=== PATIENT | female | born 1980 | race Two or more races ===

== ENCOUNTER 2023-03-22 09:20 | Emergency (ER) | payer OTHER ==
[~2023-03-22] VITALS: Ht 154.9 cm; Wt 53.5 kg
[2023-03-22 10:27] LABS: HEMOGLOBIN 13.3 g/dL (12.0-15.00); MEAN CELL VOLUME 88.2 fL (80.00-100.00); PLATELET COUNT 217 K/uL (150-450); RED BLOOD COUNT 4.43 M/uL (4.00-6.00); RED CELL DISTRIBUTION WIDTH 13.8 % (11.5-14.5)
[2023-03-22 10:42] LABS: CALCIUM 9.4 mg/dL (8.5-10.1); CREATININE SERUM 0.59 mg/dL (0.55-1.02); GFR 111.24; POTASSIUM 3.64 mEq/L (3.5-5.1)
[2023-03-22 13:37] LABS: URINE APPEARANCE Cloudy; URINE BILIRRUBIN Negative (NEGATIVE); URINE COLOR Yellow; URINE GLUCOSE Negative (NEGATIVE); URINE LEUKOCYTE Trace; URINE NITRATE Negative; URINE PROTEIN Negative (NEGATIVE); URINE UROBILINOGEN 0.2 E.U./dl
[2023-03-22 13:40] LABS: URINE EPITHELIAL CELLS 4.6 uL (0.0-38.8); URINE RBC 16.2 uL (0.0-20.8); URINE WBC 115.9 uL (0.0-23.2)
[2023-03-22 14:03] LABS: URINE BACTERIA > 9821.2 uL (0.0-1933); URINE BLOOD TRACE
[2023-03-22] MEDS ORDERED: PEPCID AC20 MG PO (14:16)
[2023-03-22] MEDS ORDERED: ZOFRAN8 MG PO (14:16)
== END 2023-03-22 14:30 | disposition home or self-care (01) ==
LOC: ER 09:21
PROVIDERS: General Practice
DX: K29.00 Acute gastritis without bleeding (principal); R10.9 Unspecified abdominal pain; R19.7 Diarrhea, unspecified

== ENCOUNTER 2023-10-10 10:07 | Emergency (ER) | payer OTHER ==
[~2023-10-10] VITALS: Ht 154.9 cm; Wt 54.4 kg
[~2023-10-10 10:07] MED LIST: PEPCID AC20 MG PO; ZOFRAN8 MG PO
[2023-10-10] MEDS ORDERED: KETOROLAC TROMETHAMINE 60 MG VIAL IM STA (10:22)
[2023-10-10] MEDS ORDERED: ORPHENADRINE CITRATE 100 MG TABLET PO STA (10:23)
[2023-10-10] MEDS ORDERED: KETOROLAC TROMETHAMINE 60 MG VIAL IM ONE (10:28)
== END 2023-10-10 13:09 | disposition home or self-care (01) ==
LOC: ER 10:08
DX: S39.012A Strain of muscle, fascia and tendon of lower back, initial encounter (principal); X58.XXXA Exposure to other specified factors, initial encounter; Y93.89 Activity, other specified; Y92.89 Other specified places as the place of occurrence of the external cause; Y99.9 Unspecified external cause status

== ENCOUNTER 2024-02-08 08:04 | Emergency (ER) | payer OTHER ==
[~2024-02-08] VITALS: Ht 154.9 cm; Wt 55.8 kg
[2024-02-08] MEDS ORDERED: KETOROLAC TROMETHAMINE 60 MG VIAL IM STA (08:41)
[2024-02-08] MEDS ORDERED: RINGERS SOLUTION,LACTATED 1,000 ML IV STA (08:42)
[2024-02-08 09:10] LABS: HEMATOCRIT 33.4 % (36.0-45.00); HEMOGLOBIN 11.1 g/dL (12.0-15.00); MEAN CELL VOLUME 80.8 fL (80.00-100.00); MEAN CORPUSCULAR HEMOGLOBIN 26.9 pg (27.00-32.0); MEAN CORPUSCULAR HGB CONC 33.3 g/dl (32.0-36.0); PLATELET COUNT 168 K/uL (150-450); RED BLOOD COUNT 4.14 M/uL (4.00-6.00); RED CELL DISTRIBUTION WIDTH 15.7 % (11.5-14.5)
[2024-02-08 09:29] LABS: CALCIUM 8.6 mg/dL (8.5-10.1); CREATININE SERUM 0.59 mg/dL (0.55-1.02); GFR 110.73; POTASSIUM 3.91 mEq/L (3.5-5.1)
[2024-02-08 10:27] LABS: PH,URINE 5.5 (5.0-8.0); URINE APPEARANCE Clear; URINE BILIRRUBIN Negative (NEGATIVE); URINE BLOOD Large; URINE COLOR Yellow; URINE GLUCOSE Negative (NEGATIVE); URINE KETONE Negative (NEGATIVE); URINE LEUKOCYTE Moderate; URINE NITRATE Positive; URINE PROTEIN Negative (NEGATIVE); URINE UROBILINOGEN 0.2 E.U./dl
[2024-02-08 10:30] LABS: URINE BACTERIA 1883.5 uL (0.0-1933); URINE EPITHELIAL CELLS 51.4 uL (0.0-38.8); URINE RBC 7.3 uL (0.0-20.8); URINE WBC 60.4 uL (0.0-23.2)
[2024-02-08 10:52] LABS: URINE CAST 0.14 uL (0.0-1.40)
== END 2024-02-08 15:31 | disposition home or self-care (01) ==
LOC: ER 08:06
PROVIDERS: General Practice
DX: N39.0 Urinary tract infection, site not specified (principal); R10.2 Pelvic and perineal pain

== ENCOUNTER → 2024-02-14 | Emergency (ER) | payer OTHER ==
[~2024-02-14] VITALS: Ht 157.5 cm; Wt 54.4 kg
[~2024-02-14] MED LIST changes: +GUAIFENESIN/DEXTROMETHORPHAN 5ML BLIST.PACK PO ONE; +KETOROLAC TROMETHAMINE 30 MG VIAL IM ONE
[2024-02-14 10:59] LABS: PH,URINE 5.5 (5.0-8.0); URINE APPEARANCE Turbid; URINE BILIRRUBIN Negative (NEGATIVE); URINE BLOOD Moderate; URINE COLOR Yellow; URINE GLUCOSE Negative (NEGATIVE); URINE LEUKOCYTE Moderate; URINE NITRATE Negative; URINE PROTEIN 30 (NEGATIVE); URINE UROBILINOGEN 0.2 E.U./dl
[2024-02-14 11:02] LABS: HEMATOCRIT 35.8 % (36.0-45.00); HEMOGLOBIN 11.6 g/dL (12.0-15.00); MEAN CELL VOLUME 81.7 fL (80.00-100.00); MEAN CORPUSCULAR HEMOGLOBIN 26.5 pg (27.00-32.0); MEAN CORPUSCULAR HGB CONC 32.4 g/dl (32.0-36.0); PLATELET COUNT 169 K/uL (150-450); RED BLOOD COUNT 4.38 M/uL (4.00-6.00); RED CELL DISTRIBUTION WIDTH 16.1 % (11.5-14.5)
[2024-02-14 11:03] LABS: URINE RBC 53.7 uL (0.0-20.8); URINE WBC 67.6 uL (0.0-23.2)
[2024-02-14 11:10] LABS: CALCIUM 9.1 mg/dL (8.5-10.1); CREATININE SERUM 0.54 mg/dL (0.55-1.02); GFR 122.64; POTASSIUM 3.71 mEq/L (3.5-5.1)
[2024-02-14 11:26] LABS: URINE BACTERIA > 9821.5 uL (0.0-1933); URINE CAST 1.17 uL (0.0-1.40); URINE EPITHELIAL CELLS > 201.7 uL (0.0-38.8); URINE KETONE >=160 (NEGATIVE)
== END | disposition home or self-care (01) ==
LOC: ER 07:32
PROVIDERS: General Practice
DX: B34.9 Viral infection, unspecified (principal); D64.9 Anemia, unspecified; R53.81 Other malaise; Z20.822 Contact with and (suspected) exposure to COVID-19